=== PATIENT | female | born 1940 | race Caucasian/White ===

== ENCOUNTER 2019-09-30 13:38 | Emergency (ER) | payer OTHER, BC ==
[~2019-09-30] VITALS: Ht 152.4 cm; Wt 47.6 kg
[2019-09-30] MEDS ORDERED: KEFLEX500 M1 PO (15:48)
[2019-09-30 16:48] VITALS: BP 96/58
== END 2019-09-30 17:13 | disposition home or self-care (01) ==
LOC: ER 13:38
DX: S81.011A Laceration without foreign body, right knee, initial encounter (principal); G43.909 Migraine, unspecified, not intractable, without status migrainosus; Z86.73 Personal history of transient ischemic attack (TIA), and cerebral infarction without residual deficits; Z96.653 Presence of artificial knee joint, bilateral; W18.39XA Other fall on same level, initial encounter; Y93.89 Activity, other specified; Y92.89 Other specified places as the place of occurrence of the external cause; Y99.8 Other external cause status

== ENCOUNTER → 2019-10-21 | Outpatient (CLI) | payer OTHER, BC ==
[~2019-10-21] MED LIST: KEFLEX500 M1 PO
== END ==
LOC: HYPER 09:37
DX: S81.011D Laceration without foreign body, right knee, subsequent encounter (principal); R60.0 Localized edema; R29.6 Repeated falls; R63.4 Abnormal weight loss; K50.90 Crohn's disease, unspecified, without complications; M06.9 Rheumatoid arthritis, unspecified; Z79.82 Long term (current) use of aspirin; W19.XXXD Unspecified fall, subsequent encounter